=== PATIENT | female | born 1955 | race Caucasian/White ===

== ENCOUNTER 2018-11-28 05:18 | Day surgery (SDC) | payer OTHER ==
[2018-11-28] MEDS ORDERED: oxyCODONE HCL SR 20MG TAB.SR.12H PO ONE (06:15)
[2018-11-28] MEDS ORDERED: ACETAMINOPHEN 325 MG TABLET ONE (06:15)
[2018-11-28] MEDS ORDERED: KETOROLAC TROMETHAMINE INJ 30 MG/ML VIAL ONE (06:15)
[2018-11-28] MEDS ORDERED: GABAPENTIN 300 MG CAPSULE ONE (06:15)
[2018-11-28] MEDS ORDERED: CELECOXIB 100 MG CAPSULE ONE (06:15)
[2018-11-28] MEDS ORDERED: HEMOSTATIC MATRIX 10 ML 1 EACH PAD MC ONE (07:01)
[2018-11-28] MEDS ORDERED: ANESTHESIA TRAY IN PYXIS 1 EA TRAY MC ONE (07:01)
[2018-11-28] MEDS ORDERED: METHYLENE BLUE 10 ML VIAL ONE (07:06)
[2018-11-28] MEDS ORDERED: BUPIVACAINE MPF 0.5% W/EPI INJ 30 ML VIAL ONE (07:06)
[2018-11-28] MEDS ORDERED: LIDOCAINE HCL/MPF 1% 30 ML VIAL IJ ONE (07:06)
[2018-11-28] MEDS ORDERED: methylPREDNISolone ACETATE 80 MG/ML VIAL ONE (07:07)
[2018-11-28] MEDS ORDERED: CEFAZOLIN 1 GM ONE (07:07)
[2018-11-28] MEDS ORDERED: ROCURONIUM BROMIDE 50 MG/5 ML ONE ×2 (07:23→09:03)
[2018-11-28] MEDS ORDERED: HYDROMORPHONE INJ 2 MG/ML DISP.SYRIN ONE (07:23)
[2018-11-28] MEDS ORDERED: IV NS 0.9% 1,000 ML IV PRN (10:03)
[2018-11-28] MEDS ORDERED: HYDROCODONE/APAP 10/325MG 1 EA TABLET PO PRN (10:30)
[2018-11-28] MEDS ORDERED: ZOLPIDEM TARTRATE 5 MG TABLET PO PRN (10:30)
[2018-11-28] MEDS ORDERED: MAGNESIUM HYDROXIDE 30 ML UDC PO PRN (10:30)
[2018-11-28] MEDS ORDERED: ACETAMINOPHEN 325 MG TABLET PO PRN (10:30)
[2018-11-28] MEDS ORDERED: HYDROCODONE/APAP 5/325MG 1 EACH TABLET PO PRN (10:30)
[2018-11-28] MEDS ORDERED: Z GUARD REMEDY 2 OZ OINT TP PRN (10:30)
[2018-11-28] MEDS ORDERED: MAG HYDROX/AL HYDROX/SIMETH 30 ML UDC PO PRN (10:30)
[2018-11-28] MEDS ORDERED: ONDANSETRON HCL/PF 4 MG/2 ML VIAL IVP PRN (10:30)
[2018-11-28] MEDS ORDERED: PERP1TAB5 PO (13:08)
[2018-11-28] MEDS ORDERED: CHOL200074 PO (13:08)
[2018-11-28] MEDS ORDERED: LISI-607 PO (13:08)
== END 2018-11-28 16:00 | disposition home or self-care (01) ==
LOC: DS 05:18 → UNDOADMIN 05:19 → MED 05:19 → DS 16:00 → UNDODISIN 16:30
PROVIDERS: ATTEND Specialist
DX: M51.17 Intervertebral disc disorders with radiculopathy, lumbosacral region (principal); M54.5 Low back pain; I10 Essential (primary) hypertension; G89.29 Other chronic pain; Z88.6 Allergy status to analgesic agent; Z80.42 Family history of malignant neoplasm of prostate; Z98.890 Other specified postprocedural states; Z79.899 Other long term (current) drug therapy
CPT/HCPCS: 63030; 72100; 87081; A6209; A6402; J0690 ×2; J1040; J1100; J1170; J1885; J2405; J2704; J2710; J3490 ×4; Q9968; 88304-TC; 88311-TC; G0378